=== PATIENT | female | born 1995 | race Caucasian/White ===

== ENCOUNTER 2016-09-30 20:37 | Emergency (ER) | payer OTHER ==
[~2016-09-30] VITALS: Ht 162.6 cm; Wt 63.0 kg
[2016-09-30 20:44] VITALS: BP 107/77
== END 2016-09-30 21:27 | disposition home or self-care (01) ==
LOC: ER 20:37
DX: J20.9 Acute bronchitis, unspecified (principal); Z88.1 Allergy status to other antibiotic agents
CPT/HCPCS: 99283; A4606; Z7610